=== PATIENT | female | born 1980 | race African-American/Black ===

== ENCOUNTER 2018-12-01 07:48 | Emergency (ER) | payer OTHER ==
[~2018-12-01] VITALS: Ht 175.3 cm; Wt 95.9 kg
[~2018-12-01 07:48] MED LIST: NOHOMEMEDICATIONS; NORCO 5-325 TA1 EACH PO
[2018-12-01] MEDS ORDERED: METFORMIN HCL500 MG PO (07:53)
[2018-12-01] MEDS ORDERED: IRON325 PO (07:53)
[2018-12-01 08:18] LABS: ABSOLUTE BASOPHILS 0.1 thou/uL (0.0-0.2); ABSOLUTE EOSINOPHILS 0.1 thou/uL (0.0-0.7); ABSOLUTE LYMPHOCYTES 2.7 thou/uL (0.8-5.3); ABSOLUTE MONOCYTES 0.4 thou/uL (0.0-1.2); ABSOLUTE NEUTROPHILS 3.1 thou/uL (1.6-8.1); BASOPHILS 1.2 %; EOSINOPHILS 1.9 %; HEMATOCRIT 34.8 % (37.0-47.0); HEMOGLOBIN 11.9 gm/dL (12.0-15.0); LYMPHOCYTES 41.7 %; MCH 32.1 pg (26.0-34.0); MCHC 34.3 g/dL (28.0-37.0); MCV 93.5 fL (80.0-100.0); MONOCYTES 6.9 %; MPV 8.4 fl. (7.2-11.1); NUCLEATED RBCS 0 /100WBC; PLATELET COUNT* 274 thou/uL (150-400); POLYS 48.3 %; RBC 3.72 mil/uL (4.20-5.00); RDW-CV 14.2 % (10.5-14.5); WBC 6.5 thou/uL (4.0-11.0)
[2018-12-01 08:30] LABS: ANION GAP 10 mmol/L (7-16); BUN 7 mg/dL (7-18); CALCIUM 8.7 mg/dL (8.5-10.1); CHLORIDE 104 mmol/L (98-107); CO2 23 mmol/L (21-32); CREATININE 0.8 mg/dL (0.6-1.3); GLUCOSE 111 mg/dL (70-99); POTASSIUM 3.6 mmol/L (3.5-5.1); SODIUM 137 mmol/L (136-145)
[2018-12-01 08:32] LABS: APTT 27.4 Seconds (25.0-31.3)
[2018-12-01 08:43] LABS: ALBUMIN 3.1 g/dL (3.4-5.0); ALKALINE PHOSPHATASE 133 U/L (46-116); CK-MB MASS < 0.5 ng/mL (<0.5-3.6); LIPASE 111 U/L (73-393); NT-PRO BRAIN NAT PEPTIDE 16 pg/mL (<300); SGOT 58 U/L (15-37); SGPT 72 U/L (30-65); TOTAL BILIRUBIN 0.4 mg/dL (<0.1-1.0); TOTAL PROTEIN 7.5 g/dL (6.4-8.2); TROPONIN-I LEVEL <0.06 ng/mL (<0.06)
[2018-12-01 10:59] VITALS: BP 118/77
--- NOTE | 2018-12-02 10:28 | EKG ---
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
== END 2018-12-01 11:00 | disposition home or self-care (01) ==
LOC: M.ERS 07:48
PROVIDERS: Family Medicine
DX: R07.2 Precordial pain (principal); E11.9 Type 2 diabetes mellitus without complications; F17.200 Nicotine dependence, unspecified, uncomplicated; Z88.0 Allergy status to penicillin; Z98.890 Other specified postprocedural states

== ENCOUNTER 2019-01-18 05:06 | Emergency (ER) | payer OTHER ==
[~2019-01-18] VITALS: Ht 175.3 cm; Wt 95.3 kg
[~2019-01-18 05:06] MED LIST changes: +IRON325 PO; +METFORMIN HCL500 MG PO
[2019-01-18] MEDS ORDERED: XANAX 0.5 MG0.5 MG (05:23)
[2019-01-18 05:51] LABS: URINE BILIRUBIN NEGATIVE (Negative); URINE BLOOD 1+ (Negative); URINE CLARITY CLEAR; URINE COLOR STRAW; URINE GLUCOSE-RANDOM NEGATIVE (Negative); URINE KETONES NEGATIVE (Negative); URINE LEUKOCYTES-REFLEX TRACE (Negative); URINE NITRITE-REFLEX NEGATIVE (Negative); URINE PROTEIN NEGATIVE (Negative); URINE SPECIFIC GRAVITY <= 1.005 (1.005-1.030); URINE UROBILINOGEN 0.2 E.U./dl (0.2-1.0)
[2019-01-18 05:55] LABS: ANION GAP 14 mmol/L (7-16); BUN 1 mg/dL (7-18); CALCIUM 9.2 mg/dL (8.5-10.1); CHLORIDE 106 mmol/L (98-107); CO2 22 mmol/L (21-32); CREATININE 0.7 mg/dL (0.6-1.3); GLUCOSE 142 mg/dL (70-99); POTASSIUM 3.3 mmol/L (3.5-5.1); SODIUM 142 mmol/L (136-145)
[2019-01-18 05:56] LABS: ABSOLUTE BASOPHILS 0.2 thou/uL (0.0-0.2); ABSOLUTE EOSINOPHILS 0.1 thou/uL (0.0-0.7); ABSOLUTE LYMPHOCYTES 3.9 thou/uL (0.8-5.3); ABSOLUTE MONOCYTES 0.5 thou/uL (0.0-1.2); ABSOLUTE NEUTROPHILS 3.2 thou/uL (1.6-8.1); BASOPHILS 2.4 %; HEMATOCRIT 38.7 % (37.0-47.0); HEMOGLOBIN 12.9 gm/dL (12.0-15.0); LYMPHOCYTES 49.7 %; MCH 31.8 pg (26.0-34.0); MCHC 33.3 g/dL (28.0-37.0); MCV 95.5 fL (80.0-100.0); MONOCYTES 6.5 %; MPV 7.7 fl. (7.2-11.1); NUCLEATED RBCS 0 /100WBC; PLATELET COUNT* 381 thou/uL (150-400); POLYS 40.4 %; RBC 4.05 mil/uL (4.20-5.00); RDW-CV 13.7 % (10.5-14.5); WBC 7.9 thou/uL (4.0-11.0)
[2019-01-18 05:58] LABS: PROTIME 10.2 Seconds (9.20-11.50)
[2019-01-18 06:05] LABS: ALBUMIN 3.7 g/dL (3.4-5.0); ALKALINE PHOSPHATASE 133 U/L (46-116); LIPASE 146 U/L (73-393); NT-PRO BRAIN NAT PEPTIDE 18 pg/mL (<300); SGOT 41 U/L (15-37); SGPT 75 U/L (30-65); TOTAL BILIRUBIN 0.1 mg/dL (<0.1-1.0); TOTAL PROTEIN 8.5 g/dL (6.4-8.2); TROPONIN-I LEVEL <0.06 ng/mL (<0.06)
[2019-01-18 06:26] LABS: SQUAMOUS >10 Many /LPF (0-3)
[2019-01-18 06:28] LABS: BACTERIA-REFLEX 1-9 Few /HPF (None Seen); CASTS None Seen /LPF (None Seen); CRYSTALS None Seen /LPF (None Seen); URINE RBC 3-10 Few /HPF (0-2); URINE WBC-REFLEX 0-5 Rare /HPF (0-5)
[2019-01-18] MEDS ORDERED: METRONIDAZOLE500 M4 PO (07:24)
[2019-01-18 07:40] VITALS: BP 140/100
--- NOTE | 2019-01-18 10:44 | EKG ---
[place] [address] ELECTROCARDIOGRAM REPORT Name: BEASLEYRONALD VIKASH [id number] Admission: 01/18/19 Attend Phys: Discharge: 01/18/19 Date of : 78 Report #: [id number] THIS REPORT FOR: //name// [facility] ED Test Date: 2019-01-18 Test Time: 05:14:37 Pat Name: RONALD BEASLEY Department: Room: Gender: F Telemetry Registered Nurse: [place] : 1980 Requested By: Malu Barrera Order Number: [id number] MD: Jac Eller Measurements Intervals [place] Rate: 115 P: 62 CO: 132 QRS: 1 QRSD: 129 T: 73 QT: 477 QTc: 660 Interpretive Statements Sinus tachycardia Minimal ST depression Compared to ECG 12/01/2018 07:51:14 ST (T wave) deviation now present Electronically Signed On 01-18-2019 10:44:23 CDT by Jac Eller [email or web address] <ELECTRONICALLY SIGNED> By: Jac Eller MD, [facility] 01/18/19 1044 D: 09/513 3 Jac Eller MD, FACC /EPI
== END 2019-01-18 07:46 | disposition home or self-care (01) ==
LOC: M.ERS 05:06
PROVIDERS: Emergency Medicine
DX: F41.9 Anxiety disorder, unspecified (principal); F10.129 Alcohol abuse with intoxication, unspecified; Y90.8 Blood alcohol level of 240 mg/100 ml or more; R12 Heartburn; A59.9 Trichomoniasis, unspecified; E11.9 Type 2 diabetes mellitus without complications; F17.210 Nicotine dependence, cigarettes, uncomplicated; Z98.890 Other specified postprocedural states; Z88.0 Allergy status to penicillin

== ENCOUNTER 2019-07-17 02:45 | Emergency (ER) | payer OTHER ==
[~2019-07-17] VITALS: Ht 175.3 cm; Wt 90.7 kg
[~2019-07-17 02:45] MED LIST changes: +METRONIDAZOLE500 M4 PO; +XANAX 0.5 MG0.5 MG
[2019-07-17 03:20] LABS: ABSOLUTE BASOPHILS 0.1 thou/uL (0.0-0.2); ABSOLUTE EOSINOPHILS 0.1 thou/uL (0.0-0.7); ABSOLUTE LYMPHOCYTES 3.4 thou/uL (0.8-5.3); ABSOLUTE MONOCYTES 0.5 thou/uL (0.0-1.2); BASOPHILS 1.6 %; EOSINOPHILS 1.9 %; HEMATOCRIT 34.4 % (37.0-47.0); HEMOGLOBIN 11.6 gm/dL (12.0-15.0); LYMPHOCYTES 47.4 %; MCH 31.7 pg (26.0-34.0); MCHC 33.7 g/dL (28.0-37.0); MCV 93.9 fL (80.0-100.0); MONOCYTES 7.4 %; MPV 8.5 fl. (7.2-11.1); NUCLEATED RBCS 0 /100WBC; PLATELET COUNT* 353 thou/uL (150-400); POLYS 41.7 %; RBC 3.67 mil/uL (4.20-5.00); RDW-CV 13.2 % (10.5-14.5); WBC 7.2 thou/uL (4.0-11.0)
[2019-07-17 03:31] LABS: CREATININE 0.9 mg/dL (0.6-1.3); POTASSIUM 3.5 mmol/L (3.5-5.1)
[2019-07-17 03:35] LABS: ALBUMIN 3.4 g/dL (3.4-5.0); MAGNESIUM 1.8 mg/dL (1.8-2.4); TOTAL BILIRUBIN 0.3 mg/dL (<0.1-1.0); TOTAL PROTEIN 7.8 g/dL (6.4-8.2)
[2019-07-17 05:12] VITALS: BP 134/89
--- NOTE | 2019-07-17 09:59 | EKG ---
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 : 1980 Requested By: Robin Pineda Order Number: [id number] MD: Juan C Koenig Measurements Intervals [place] Rate: 78 P: 49 DC: 157 QRS: -8 QRSD: 89 T: 17 QT: 406 QTc: 463 Interpretive Statements Sinus rhythm Low voltage, precordial leads Nonspecific T abnormalities, anterior leads Baseline wander in lead(s) II,III,aVF Compared to ECG 01/18/2019 05:14:37 Low QRS voltage now present T-wave abnormality now present Sinus tachycardia no longer present ST (T wave) deviation no longer present Electronically Signed On 07-17-2019 9:58:28 CDT by Juan C Koenig [email or web address] <ELECTRONICALLY SIGNED> By: Juan C Koenig MD, [facility] 07/17/19 0958 8 Juan C Koenig MD, [facility] /EPI
== END 2019-07-17 05:13 | disposition home or self-care (01) ==
LOC: M.ERS 02:45
PROVIDERS: Emergency Medicine Emergency Medical Services
DX: R07.89 Other chest pain (principal); R00.2 Palpitations; E11.9 Type 2 diabetes mellitus without complications; Z98.890 Other specified postprocedural states; Z88.0 Allergy status to penicillin; F17.210 Nicotine dependence, cigarettes, uncomplicated

== ENCOUNTER 2019-10-04 23:41 | Emergency (ER) | payer OTHER ==
[~2019-10-04] VITALS: Ht 175.3 cm; Wt 95.7 kg
[2019-10-04] MEDS ORDERED: HYDROXYZINE HCL25 M2 PO (23:49)
[2019-10-05 00:45] LABS: ABSOLUTE LYMPHOCYTES 1.9 thou/uL (0.8-5.3); ABSOLUTE MONOCYTES 0.6 thou/uL (0.0-1.2); ABSOLUTE NEUTROPHILS 4.1 thou/uL (1.6-8.1); BASOPHILS 0.4 %; EOSINOPHILS 0.5 %; HEMATOCRIT 34.7 % (37.0-47.0); HEMOGLOBIN 11.8 gm/dL (12.0-15.0); LYMPHOCYTES 28.6 %; MCH 31.8 pg (26.0-34.0); MCV 93.4 fL (80.0-100.0); MONOCYTES 9.6 %; MPV 8.4 fl. (7.2-11.1); NUCLEATED RBCS 0 /100WBC; PLATELET COUNT* 327 thou/uL (150-400); POLYS 60.9 %; RBC 3.72 mil/uL (4.20-5.00); RDW-CV 13.5 % (10.5-14.5); WBC 6.7 thou/uL (4.0-11.0)
[2019-10-05 00:56] LABS: CALCIUM 9.1 mg/dL (8.5-10.1); CREATININE 0.9 mg/dL (0.6-1.3); POTASSIUM 3.7 mmol/L (3.5-5.1)
[2019-10-05 01:00] LABS: PROTIME 10.3 Seconds (9.20-11.50)
[2019-10-05 01:07] LABS: ALBUMIN 3.6 g/dL (3.4-5.0); MAGNESIUM 1.8 mg/dL (1.8-2.4); TOTAL BILIRUBIN 0.3 mg/dL (<0.1-1.0)
[2019-10-05 03:43] LABS: URINE BILIRUBIN NEGATIVE (Negative); URINE BLOOD NEGATIVE (Negative); URINE CLARITY CLEAR; URINE COLOR YELLOW; URINE GLUCOSE-RANDOM NEGATIVE (Negative); URINE KETONES NEGATIVE (Negative); URINE LEUKOCYTES-REFLEX NEGATIVE (Negative); URINE NITRITE-REFLEX NEGATIVE (Negative); URINE PROTEIN TRACE (Negative); URINE UROBILINOGEN 0.2 E.U./dl (0.2-1.0)
[2019-10-05] MEDS ORDERED: ZOFRAN ODT4 MG PO (06:12)
[2019-10-05] MEDS ORDERED: AZITHROMYCIN 2250 MG PO (06:12)
[2019-10-05] MEDS ORDERED: XANAX 1 MG TABLE1 MG PO (06:12)
[2019-10-05] MEDS ORDERED: PROAIR HFA8.5 GM INH (06:12)
[2019-10-05 07:46] VITALS: BP 123/67
--- NOTE | 2019-10-05 11:24 | EKG ---
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 : 1980 Requested By: Malu Barrera Order Number: [id number] MD: Juan C Koenig Measurements Intervals [place] Rate: 91 P: 54 [place]: 151 QRS: -1 QRSD: 89 T: 14 QT: 375 QTc: 462 Interpretive Statements Sinus rhythm Low voltage, precordial leads Borderline T abnormalities, anterior leads Baseline wander in lead(s) II,III,aVL,aVF Compared to ECG 07/17/2019 02:49:25 No significant changes Electronically Signed On 10-05-2019 11:22:54 CDT by Juan C Koenig [email or web address] <ELECTRONICALLY SIGNED> By: Juan C Koenig MD, FACC 10/05/19 1122 2348 2348 Juan C Koenig MD, FAC /EPI
== END 2019-10-05 07:47 | disposition home or self-care (01) ==
LOC: M.ERS 23:41
PROVIDERS: Emergency Medicine
DX: U07.1 COVID-19 (principal); J12.89 Other viral pneumonia; F17.210 Nicotine dependence, cigarettes, uncomplicated; E11.9 Type 2 diabetes mellitus without complications; R11.2 Nausea with vomiting, unspecified; R19.7 Diarrhea, unspecified; F41.9 Anxiety disorder, unspecified; Z88.0 Allergy status to penicillin; Z79.899 Other long term (current) drug therapy

== ENCOUNTER 2020-04-01 22:33 | Emergency (ER) | payer BC ==
[~2020-04-01] VITALS: Ht 175.3 cm; Wt 98.4 kg
[~2020-04-01 22:33] MED LIST changes: +AZITHROMYCIN 2250 MG PO; +HYDROXYZINE HCL25 M2 PO; +PROAIR HFA8.5 GM INH; +XANAX 1 MG TABLE1 MG PO; +ZOFRAN ODT4 MG PO
[2020-04-01] MEDS ORDERED: CLONAZEPAM 0.50.5 M1 PO (22:43)
[2020-04-01] MEDS ORDERED: COZAAR 25 MG TA25 M1 PO (22:44)
[2020-04-01 23:15] LABS: ABSOLUTE BASOPHILS 0.1 thou/uL (0.0-0.2); ABSOLUTE EOSINOPHILS 0.1 thou/uL (0.0-0.7); ABSOLUTE MONOCYTES 0.6 thou/uL (0.0-1.2); ABSOLUTE NEUTROPHILS 5.5 thou/uL (1.6-8.1); BASOPHILS 1.3 %; EOSINOPHILS 1.1 %; HEMATOCRIT 34.3 % (37.0-47.0); HEMOGLOBIN 11.4 gm/dL (12.0-15.0); LYMPHOCYTES 32.3 %; MCH 31.3 pg (26.0-34.0); MCHC 33.1 g/dL (28.0-37.0); MCV 94.4 fL (80.0-100.0); MONOCYTES 6.1 %; MPV 7.8 fl. (7.2-11.1); NUCLEATED RBCS 0 /100WBC; PLATELET COUNT* 303 thou/uL (150-400); POLYS 59.2 %; RBC 3.63 mil/uL (4.20-5.00); RDW-CV 13.2 % (10.5-14.5); WBC 9.2 thou/uL (4.0-11.0)
[2020-04-01 23:45] LABS: CALCIUM 9.7 mg/dL (8.5-10.1); CREATININE 0.9 mg/dL (0.6-1.3); POTASSIUM 3.7 mmol/L (3.5-5.1)
[2020-04-01 23:49] LABS: INR < 0.9; PROTIME 9.9 Seconds (9.20-11.50)
[2020-04-01 23:50] LABS: ALBUMIN 3.3 g/dL (3.4-5.0); TOTAL BILIRUBIN 0.2 mg/dL (<0.1-1.0); TOTAL PROTEIN 7.5 g/dL (6.4-8.2)
[2020-04-01 23:57] LABS: URINE BILIRUBIN NEGATIVE (Negative); URINE BLOOD NEGATIVE (Negative); URINE CLARITY CLEAR; URINE COLOR YELLOW; URINE GLUCOSE-RANDOM NEGATIVE (Negative); URINE KETONES NEGATIVE (Negative); URINE LEUKOCYTES-REFLEX NEGATIVE (Negative); URINE NITRITE-REFLEX NEGATIVE (Negative); URINE PROTEIN NEGATIVE (Negative); URINE SPECIFIC GRAVITY 1.015 (1.005-1.030); URINE UROBILINOGEN 0.2 E.U./dl (0.2-1.0)
[2020-04-02 00:34] LABS: AMP/METHAMP Negative (Negative); BARBITURATES Negative (Negative); BENZODIAZEPINES Negative (Negative); COCAINE Negative (Negative); METHADONE Negative (Negative); OPIATES Negative (Negative); PCP Negative (Negative); THC Negative (Negative)
[2020-04-02] MEDS ORDERED: CARAFATE 1 GM TA1 GM PO (00:44)
[2020-04-02 01:00] VITALS: BP 146/86
--- NOTE | 2020-04-02 11:07 | EKG ---
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: [place] : 1980 Requested By: Valerie Leyva Order Number: [id number] MD: Saul Palmer Measurements Intervals [place] Rate: 89 P: 22 RI: 159 QRS: -1 QRSD: 95 T: 13 QT: 342 QTc: 417 Interpretive Statements Sinus rhythm Low voltage, precordial leads Borderline T abnormalities, anterior leads Compared to ECG 10/04/2019 23:48:57 No significant changes Electronically Signed On 04-02-2020 11:07:37 [employer] by Saul Palmer [email or web address] <ELECTRONICALLY SIGNED> By: Josemanuel Palmer MD, [facility] 04/02/20 1107 38 38 Josemanuel Palmer MD, [facility] /EPI
== END 2020-04-02 01:00 | disposition home or self-care (01) ==
LOC: M.ERS 22:33
PROVIDERS: Personal Emergency Response Attendant
DX: K21.00 Gastro-esophageal reflux disease with esophagitis, without bleeding (principal); E11.9 Type 2 diabetes mellitus without complications; F17.210 Nicotine dependence, cigarettes, uncomplicated; Z88.0 Allergy status to penicillin; Z98.890 Other specified postprocedural states; Z86.2 Personal history of diseases of the blood and blood-forming organs and certain disorders involving the immune mechanism; Z79.899 Other long term (current) drug therapy

== ENCOUNTER 2020-08-10 22:05 | Emergency (ER) | payer BC ==
[~2020-08-10] VITALS: Ht 175.3 cm; Wt 99.8 kg
[~2020-08-10 22:05] MED LIST changes: +CARAFATE 1 GM TA1 GM PO; +CLONAZEPAM 0.50.5 M1 PO; +COZAAR 25 MG TA25 M1 PO
[2020-08-10 22:23] LABS: URINE BILIRUBIN NEGATIVE (Negative); URINE BLOOD 3+ (Negative); URINE CLARITY CLEAR; URINE COLOR YELLOW; URINE GLUCOSE-RANDOM NEGATIVE (Negative); URINE KETONES NEGATIVE (Negative); URINE LEUKOCYTES-REFLEX 1+ (Negative); URINE NITRITE-REFLEX NEGATIVE (Negative); URINE PROTEIN NEGATIVE (Negative); URINE SPECIFIC GRAVITY >= 1.030 (1.005-1.030); URINE UROBILINOGEN 0.2 E.U./dl (0.2-1.0)
[2020-08-10 22:31] LABS: BACTERIA-REFLEX 1-9 Few /HPF (None Seen); MUCUS 0-3 Light strn/LPF (None Seen); SQUAMOUS >10 Many /LPF (0-3); URINE WBC-REFLEX 0-5 Rare /HPF (0-5)
[2020-08-10 22:32] LABS: CASTS None Seen /LPF (None Seen); CRYSTALS None Seen /LPF (None Seen)
[2020-08-10 23:07] LABS: ABSOLUTE BASOPHILS 0.1 thou/uL (0.0-0.2); ABSOLUTE EOSINOPHILS 0.2 thou/uL (0.0-0.7); ABSOLUTE MONOCYTES 0.6 thou/uL (0.0-1.2); ABSOLUTE NEUTROPHILS 6.3 thou/uL (1.6-8.1); BASOPHILS 0.9 %; EOSINOPHILS 1.6 %; HEMATOCRIT 36.2 % (37.0-47.0); HEMOGLOBIN 11.9 gm/dL (12.0-15.0); LYMPHOCYTES 35.8 %; MCV 97.2 fL (80.0-100.0); MONOCYTES 5.7 %; MPV 8.7 fl. (7.2-11.1); NUCLEATED RBCS 0 /100WBC; RBC 3.72 mil/uL (4.20-5.00); RDW-CV 12.9 % (10.5-14.5); WBC 11.3 thou/uL (4.0-11.0)
[2020-08-10 23:16] LABS: CALCIUM 9.5 mg/dL (8.5-10.1); CREATININE 0.7 mg/dL (0.6-1.3)
[2020-08-10 23:21] LABS: ALBUMIN 3.5 g/dL (3.4-5.0); TOTAL BILIRUBIN 0.2 mg/dL (<0.1-1.0); TOTAL PROTEIN 7.7 g/dL (6.4-8.2)
[2020-08-10 23:41] LABS: PLATELET COUNT* 310 thou/uL (150-400)
[2020-08-11] MEDS ORDERED: HYDROCODON-ACE1 EAC8 PO (02:24)
[2020-08-11 02:31] VITALS: BP 122/89
== END 2020-08-11 02:32 | disposition home or self-care (01) ==
LOC: M.ERS 22:05
PROVIDERS: Emergency Medicine
DX: R10.31 Right lower quadrant pain (principal); E11.9 Type 2 diabetes mellitus without complications; F17.210 Nicotine dependence, cigarettes, uncomplicated; Z88.0 Allergy status to penicillin; Z98.890 Other specified postprocedural states; Z86.2 Personal history of diseases of the blood and blood-forming organs and certain disorders involving the immune mechanism

== ENCOUNTER 2020-10-03 01:47 | Emergency (ER) | payer BC ==
[~2020-10-03] VITALS: Ht 175.3 cm; Wt 95.3 kg
[~2020-10-03 01:47] MED LIST changes: +HYDROCODON-ACE1 EAC8 PO
[2020-10-03 02:21] LABS: ABSOLUTE BASOPHILS 0.1 thou/uL (0.0-0.2); ABSOLUTE EOSINOPHILS 0.3 thou/uL (0.0-0.7); ABSOLUTE MONOCYTES 0.8 thou/uL (0.0-1.2); ABSOLUTE NEUTROPHILS 3.6 thou/uL (1.6-8.1); BASOPHILS 0.7 %; EOSINOPHILS 3.3 %; HEMATOCRIT 36.1 % (37.0-47.0); HEMOGLOBIN 12.1 gm/dL (12.0-15.0); LYMPHOCYTES 38.8 %; MCH 32.4 pg (26.0-34.0); MCHC 33.6 g/dL (28.0-37.0); MCV 96.5 fL (80.0-100.0); MONOCYTES 10.5 %; MPV 7.8 fl. (7.2-11.1); NUCLEATED RBCS 0 /100WBC; PLATELET COUNT* 296 thou/uL (150-400); POLYS 46.7 %; RBC 3.74 mil/uL (4.20-5.00); RDW-CV 13.1 % (10.5-14.5); WBC 7.7 thou/uL (4.0-11.0)
[2020-10-03 02:33] LABS: ANION GAP 9 mmol/L (7-16); BUN 10 mg/dL (7-18); CALCIUM 9.2 mg/dL (8.5-10.1); CHLORIDE 103 mmol/L (98-107); CO2 24 mmol/L (21-32); CREATININE 0.9 mg/dL (0.6-1.3); GLUCOSE 111 mg/dL (70-99); POTASSIUM 3.6 mmol/L (3.5-5.1); SODIUM 136 mmol/L (136-145)
[2020-10-03 02:38] LABS: ALBUMIN 3.2 g/dL (3.4-5.0); ALKALINE PHOSPHATASE 125 U/L (46-116); SGOT 42 U/L (15-37); SGPT 76 U/L (30-65); TOTAL BILIRUBIN < 0.1 mg/dL (<0.1-1.0); TOTAL PROTEIN 7.8 g/dL (6.4-8.2)
[2020-10-03 02:39] LABS: INFLUENZA A ANTIGEN Negative (Negative); INFLUENZA B ANTIGEN Negative (Negative)
[2020-10-03] MEDS ORDERED: MEDROLDOSEPACK PO (03:02)
[2020-10-03] MEDS ORDERED: KEFLEX250 MG PO (03:06)
[2020-10-03 03:28] VITALS: BP 146/96
== END 2020-10-03 03:29 | disposition home or self-care (01) ==
LOC: M.ERS 01:47
PROVIDERS: Emergency Medicine
DX: J02.0 Streptococcal pharyngitis (principal); Z20.822 Contact with and (suspected) exposure to COVID-19; R09.81 Nasal congestion; E11.9 Type 2 diabetes mellitus without complications; F17.210 Nicotine dependence, cigarettes, uncomplicated; Z98.51 Tubal ligation status; Z98.890 Other specified postprocedural states; Z86.2 Personal history of diseases of the blood and blood-forming organs and certain disorders involving the immune mechanism; Z88.0 Allergy status to penicillin

== ENCOUNTER 2020-10-05 01:44 | Emergency (ER) | payer BC ==
[~2020-10-05] VITALS: Ht 175.3 cm; Wt 95.3 kg
[~2020-10-05 01:44] MED LIST changes: +KEFLEX250 MG PO; +MEDROLDOSEPACK PO
[2020-10-05] MEDS ORDERED: ACETAMINOPHEN-1 EAC2 PO (02:40)
[2020-10-05] MEDS ORDERED: ZOFRAN ODT4 MG PO (02:40)
[2020-10-05 04:30] VITALS: BP 128/73
== END 2020-10-05 04:30 | disposition home or self-care (01) ==
LOC: M.ERS 01:44
DX: H66.91 Otitis media, unspecified, right ear (principal); H60.91 Unspecified otitis externa, right ear; R10.13 Epigastric pain; R51.9 Headache, unspecified; Z88.0 Allergy status to penicillin; F17.210 Nicotine dependence, cigarettes, uncomplicated; Z98.890 Other specified postprocedural states; E11.9 Type 2 diabetes mellitus without complications; Z98.51 Tubal ligation status; Z86.2 Personal history of diseases of the blood and blood-forming organs and certain disorders involving the immune mechanism

== ENCOUNTER 2020-11-20 08:59 | Emergency (ER) | payer BC ==
[~2020-11-20] VITALS: Ht 175.3 cm; Wt 95.3 kg
[~2020-11-20 08:59] MED LIST changes: +ACETAMINOPHEN-1 EAC2 PO
[2020-11-20 09:52] VITALS: BP 128/92
== END 2020-11-20 09:53 | disposition home or self-care (01) ==
LOC: M.ERS 08:59
DX: Z20.822 Contact with and (suspected) exposure to COVID-19 (principal); F17.210 Nicotine dependence, cigarettes, uncomplicated; Z98.890 Other specified postprocedural states; Z86.2 Personal history of diseases of the blood and blood-forming organs and certain disorders involving the immune mechanism; Z98.51 Tubal ligation status; Z88.0 Allergy status to penicillin

== ENCOUNTER 2020-12-18 08:48 | Emergency (ER) | payer BC ==
[~2020-12-18] VITALS: Ht 175.3 cm; Wt 97.5 kg
[2020-12-18 09:32] LABS: ABSOLUTE BASOPHILS 0.1 thou/uL (0.0-0.2); ABSOLUTE EOSINOPHILS 0.1 thou/uL (0.0-0.7); ABSOLUTE LYMPHOCYTES 2.1 thou/uL (0.8-5.3); ABSOLUTE MONOCYTES 0.5 thou/uL (0.0-1.2); ABSOLUTE NEUTROPHILS 4.6 thou/uL (1.6-8.1); BASOPHILS 0.9 %; EOSINOPHILS 1.4 %; HEMATOCRIT 33.9 % (37.0-47.0); HEMOGLOBIN 11.5 gm/dL (12.0-15.0); LYMPHOCYTES 28.3 %; MCHC 33.9 g/dL (28.0-37.0); MCV 94.2 fL (80.0-100.0); MONOCYTES 7.3 %; MPV 7.6 fl. (7.2-11.1); NUCLEATED RBCS 0 /100WBC; PLATELET COUNT* 323 thou/uL (150-400); POLYS 62.1 %; RDW-CV 12.6 % (10.5-14.5); WBC 7.4 thou/uL (4.0-11.0)
[2020-12-18 09:43] LABS: CREATININE 0.8 mg/dL (0.6-1.3); POTASSIUM 3.7 mmol/L (3.5-5.1)
[2020-12-18 09:47] LABS: ALBUMIN 3.7 g/dL (3.4-5.0); TOTAL BILIRUBIN 0.4 mg/dL (<0.1-1.0); TOTAL PROTEIN 7.7 g/dL (6.4-8.2)
--- NOTE | 2020-12-18 09:58 | EKG ---
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1980 Requested By: Bob Quan Order Number: [id number] MD: Juan C Koenig Measurements Intervals [place] Rate: 82 P: 64 [place]: 167 QRS: 18 QRSD: 94 T: 43 QT: 396 QTc: 463 Interpretive Statements Sinus rhythm Low voltage, precordial leads Borderline T abnormalities, anterior leads Compared to ECG 04/01/2020 22:39:04 No significant changes Electronically Signed On 12-18-2020 9:58:33 CDT by Juan C Koenig [email or web address] <ELECTRONICALLY SIGNED> By: Juan C Koenig MD, [facility] 12/18/20 0958 5 5 Juan C Koenig MD, [facility] /EPI
[2020-12-18] MEDS ORDERED: ZOFRAN ODT4 MG DISSOLVE (10:58)
[2020-12-18] MEDS ORDERED: IBUPROFEN 800800 MG PO (10:58)
[2020-12-18 11:11] VITALS: BP 126/86
[2020-12-18 11:18] LABS: URINE BILIRUBIN NEGATIVE (Negative); URINE BLOOD NEGATIVE (Negative); URINE CLARITY CLEAR; URINE COLOR YELLOW; URINE GLUCOSE-RANDOM NEGATIVE (Negative); URINE KETONES NEGATIVE (Negative); URINE LEUKOCYTES-REFLEX NEGATIVE (Negative); URINE NITRITE-REFLEX NEGATIVE (Negative); URINE PROTEIN NEGATIVE (Negative); URINE SPECIFIC GRAVITY <= 1.005 (1.005-1.030); URINE UROBILINOGEN 0.2 E.U./dl (0.2-1.0)
== END 2020-12-18 11:12 | disposition home or self-care (01) ==
LOC: M.ERS 08:48
PROVIDERS: Family Medicine
DX: N83.202 Unspecified ovarian cyst, left side (principal); R10.32 Left lower quadrant pain; F41.9 Anxiety disorder, unspecified; E11.9 Type 2 diabetes mellitus without complications; F17.210 Nicotine dependence, cigarettes, uncomplicated; Z98.890 Other specified postprocedural states; Z86.16 Personal history of COVID-19; Z88.0 Allergy status to penicillin

== ENCOUNTER 2020-12-26 11:33 | Emergency (ER) | payer BC ==
[~2020-12-26] VITALS: Ht 175.3 cm; Wt 99.8 kg
[~2020-12-26 11:33] MED LIST changes: +IBUPROFEN 800800 MG PO; +ZOFRAN ODT4 MG DISSOLVE
[2020-12-26] MEDS ORDERED: NAPROSYN500 MG PO (13:01)
[2020-12-26 13:27] VITALS: BP 122/80
== END 2020-12-26 13:27 | disposition home or self-care (01) ==
LOC: M.ERS 11:33
DX: M25.562 Pain in left knee (principal); E11.9 Type 2 diabetes mellitus without complications; F41.9 Anxiety disorder, unspecified; F17.210 Nicotine dependence, cigarettes, uncomplicated; Z98.51 Tubal ligation status; Z88.0 Allergy status to penicillin

== ENCOUNTER 2021-01-09 17:47 | Emergency (ER) | payer BC ==
[~2021-01-09] VITALS: Ht 165.1 cm; Wt 99.8 kg
[~2021-01-09 17:47] MED LIST changes: +NAPROSYN500 MG PO
[2021-01-09 19:36] VITALS: BP 137/88
== END 2021-01-09 19:36 | disposition left against medical advice (07) ==
LOC: M.ERS 17:47
DX: R51.9 Headache, unspecified (principal); Z53.21 Procedure and treatment not carried out due to patient leaving prior to being seen by health care provider